=== PATIENT | female | born 1970 | race Caucasian/White ===

== ENCOUNTER 2020-09-15 21:27 | Emergency (ER) | payer MEDICAID ==
[~2020-09-15] VITALS: Ht 154.9 cm; Wt 86.4 kg
[2020-09-15 21:28] VITALS: BP 136/81
[2020-09-16 02:31] LABS: COVID AG,FIA SOURCE NASOPHARYNGEAL
== END 2020-09-16 04:56 | disposition home or self-care (01) ==
LOC: EMS 21:27
DX: U07.1 COVID-19 (principal); R50.9 Fever, unspecified; R51.9 Headache, unspecified; R05 Cough
CPT/HCPCS: 87426; 99283; U0003